=== PATIENT | male | born 1955 | race Caucasian/White ===

== ENCOUNTER 2023-12-22 06:16 | Day surgery (SDC) | payer MEDICARE, SELFPAY ==
[2023-12-02 07:51] VITALS: BMI 23.9
[2023-12-22] VITALS (7 sets, daily range): BP systolic 109–128; BP diastolic 70–83; BMI 23.9
[2023-12-22] MEDS: NORMOSOL-R 1000 IV (07:59)
[2023-12-22] MEDS: Pyridium 200 MG PO (09:37)
== END 2023-12-22 11:00 | disposition home or self-care (01) ==
LOC: SDS 06:16
PROVIDERS: ATTENDING PHYSICIAN Specialist; FAMILY PHYSICIAN Internal Medicine
DX: N13.9 Obstructive and reflux uropathy, unspecified (principal); N32.89 Other specified disorders of bladder; R35.1 Nocturia; R39.15 Urgency of urination; R39.12 Poor urinary stream; Z98.890 Other specified postprocedural states
CPT/HCPCS: 52281; 76000; C1769

== ENCOUNTER 2024-03-21 11:08 | Outpatient (RCR) | payer MEDICARE, SELFPAY | END 2024-03-21 23:59 | disposition home or self-care (01) | LOC: RPT 11:08 | PROVIDERS: ATTENDING PHYSICIAN Specialist; FAMILY PHYSICIAN Internal Medicine | DX: N40.1 Benign prostatic hyperplasia with lower urinary tract symptoms (principal); M62.89 Other specified disorders of muscle; Z73.6 Limitation of activities due to disability; M62.81 Muscle weakness (generalized) | CPT/HCPCS: 97162; 97530 ==

== ENCOUNTER 2024-04-18 12:52 | Outpatient (RCR) | payer MEDICARE, SELFPAY | END 2024-04-18 23:59 | disposition home or self-care (01) | LOC: RPT 12:52 | PROVIDERS: ATTENDING PHYSICIAN Specialist; FAMILY PHYSICIAN Internal Medicine | DX: N40.1 Benign prostatic hyperplasia with lower urinary tract symptoms (principal); M62.89 Other specified disorders of muscle; Z73.6 Limitation of activities due to disability | CPT/HCPCS: 97014; 97110; 97140; 97530 ==

== ENCOUNTER → 2024-05-13 10:25 | Outpatient (REF) | payer MEDICARE, SELFPAY ==
[2024-05-13 11:57] LABS: Glycohemoglobin (HgbA1c) 5.6 % (4.0-5.6)
== END ==
LOC: RAD 10:25
PROVIDERS: ATTENDING PHYSICIAN Internal Medicine
DX: R07.89 Other chest pain (principal); R73.01 Impaired fasting glucose
CPT/HCPCS: 36415; 71046; 83036

== ENCOUNTER 2024-05-17 08:57 | Outpatient (RCR) | payer MEDICARE, SELFPAY | END 2024-05-17 23:59 | disposition home or self-care (01) | LOC: RPT 08:57 | PROVIDERS: ATTENDING PHYSICIAN Specialist; FAMILY PHYSICIAN Internal Medicine | DX: N40.1 Benign prostatic hyperplasia with lower urinary tract symptoms (principal); M62.89 Other specified disorders of muscle; Z73.6 Limitation of activities due to disability | CPT/HCPCS: 97014; 97112; 97140; 97530 ==

== ENCOUNTER 2024-06-14 08:41 | Outpatient (RCR) | payer MEDICARE, SELFPAY | END 2024-06-14 23:59 | disposition home or self-care (01) | LOC: RPT 08:41 | PROVIDERS: ATTENDING PHYSICIAN Specialist; FAMILY PHYSICIAN Internal Medicine | DX: N40.1 Benign prostatic hyperplasia with lower urinary tract symptoms (principal); M62.89 Other specified disorders of muscle; Z73.6 Limitation of activities due to disability | CPT/HCPCS: 97014; 97110; 97140; 97530 ==

== ENCOUNTER → 2024-09-27 07:44 | Outpatient (REF) | payer MEDICARE, SELFPAY ==
[2024-09-27 09:34] LABS: Glycohemoglobin (HgbA1c) 5.6 % (4.0-5.6)
[2024-09-27 09:46] LABS: ALT (SGPT) 19 U/L (0-50); AST (SGOT) 31 U/L (17-59); Alkaline Phosphatase 61 U/L (38-126); Blood Urea Nitrogen 33 mg/dl (9-20); Calcium 9.3 mg/dl (8.4-10.2); Carbon Dioxide 27 mmol/L (22-30); Chloride 101 mmol/L (98-107); Glucose 94 mg/dl (70-99); HDL Cholesterol 53 mg/dl; LDL Cholesterol, Calculated 94 mg/dl; Potassium 4.8 mmol/L (3.5-5.1); Sodium 138 mmol/L (135-145); Total Bilirubin 1.1 mg/dl (0.2-1.3); Total Cholesterol 170 mg/dl (50-199); Total Protein 7.3 g/dl (6.3-8.2); Triglyceride 115 mg/dl (10-149); Very Low Density Lipoprotein 23 mg/dl (0-30); eGFR > 60.00
== END ==
LOC: HWLAB 07:44
PROVIDERS: ATTENDING PHYSICIAN Internal Medicine Cardiovascular Disease; FAMILY PHYSICIAN Internal Medicine
DX: E78.2 Mixed hyperlipidemia (principal); R73.01 Impaired fasting glucose
CPT/HCPCS: 36415; 80053; 80061; 83036

== ENCOUNTER → 2025-05-01 08:24 | Outpatient (REF) | payer MEDICARE, SELFPAY ==
[2025-05-01 11:01] LABS: PSA, Total - Screen 1.53 ng/ml (0.0-4.0)
== END ==
LOC: HWLAB 08:24
PROVIDERS: ATTENDING PHYSICIAN Specialist; FAMILY PHYSICIAN Internal Medicine
DX: Z12.5 Encounter for screening for malignant neoplasm of prostate (principal)
CPT/HCPCS: 36415; G0103

== ENCOUNTER → 2025-06-05 08:09 | Outpatient (REF) | payer MEDICARE, SELFPAY ==
[2025-06-05 09:54] LABS: Hematocrit 45.3 % (39.0-52.0); Hemoglobin 15.5 g/dL (13.0-18.0); Mean Corp Hgb Conc. 34.2 g/dL (33.0-37.0); Mean Corpuscular Volume 93.4 fL (80.0-94.0); Nucleated Red Blood Cells % 0 % (-); Platelet Count 143 10^3/uL (130-400); Red Cell Dist. Width 12.0 % (11.5-14.5)
[2025-06-05 09:57] LABS: Urine Character Clear (Clear)
[2025-06-05 10:08] LABS: Urine Red Blood Cell 0-2 /HPF (0-2); Urine Squamous Cell 0-2 /LPF (Few); Urine White Cell 0-2 /HPF (0-5)
[2025-06-05 10:27] LABS: ALT (SGPT) 22 U/L (0-50); AST (SGOT) 30 U/L (17-59); Albumin 4.3 g/dl (3.5-5.0); Alkaline Phosphatase 52 U/L (38-126); Blood Urea Nitrogen 26 mg/dl (9-20); Calcium 9.3 mg/dl (8.4-10.2); Carbon Dioxide 28 mmol/L (22-30); Chloride 106 mmol/L (98-107); Glucose 106 mg/dl (70-99); HDL Cholesterol 61 mg/dl; LDL Cholesterol, Calculated 88 mg/dl; Potassium 4.8 mmol/L (3.5-5.1); Sodium 139 mmol/L (135-145); Total Protein 6.9 g/dl (6.3-8.2); Very Low Density Lipoprotein 24 mg/dl (0-30); eGFR > 60.00
[2025-06-05 10:39] LABS: TSH 1.97 uIU/ml (0.47-4.68)
[2025-06-05 10:43] LABS: Glycohemoglobin (HgbA1c) 5.8 % (4.0-5.6)
== END ==
LOC: HWLAB 08:09
PROVIDERS: ATTENDING PHYSICIAN Internal Medicine
DX: E78.2 Mixed hyperlipidemia (principal); I47.0 Re-entry ventricular arrhythmia; I10 Essential (primary) hypertension; E74.39 Other disorders of intestinal carbohydrate absorption
CPT/HCPCS: 36415; 80053; 80061; 81003; 81015; 83036; 84443; 85025

== ENCOUNTER → 2025-07-21 15:27 | Outpatient (REF) | payer MEDICARE, SELFPAY | LOC: PAVMRI 15:27 | PROVIDERS: ATTENDING PHYSICIAN Orthopaedic Surgery; FAMILY PHYSICIAN Internal Medicine | DX: M25.531 Pain in right wrist (principal) | CPT/HCPCS: 73221 ==

== ENCOUNTER 2025-08-08 06:29 | Day surgery (SDC) | payer MEDICARE, SELFPAY ==
[2025-07-31 12:52] VITALS: BMI 24.4
[2025-08-08] VITALS (7 sets, daily range): BP systolic 116–138; BP diastolic 69–82; BMI 24.4
[2025-08-08] MEDS: TYLENOL 1000 MG PO (14:47)
[2025-08-08] MEDS: CELEBREX 200 MG PO (14:47)
[2025-08-08] MEDS: NORMOSOL-R/PLASMALYTE-A 1000 IV (14:48)
== END 2025-08-08 19:50 | disposition home or self-care (01) ==
LOC: SDS 06:29
PROVIDERS: ATTENDING PHYSICIAN Orthopaedic Surgery; FAMILY PHYSICIAN Internal Medicine
DX: D36.7 Benign neoplasm of other specified sites (principal)
CPT/HCPCS: 25075; 88304